=== PATIENT | male | born 1965 | race Caucasian/White ===

== ENCOUNTER → 2017-06-10 | Outpatient (CLI) | payer BC, OTHER ==
[~2017-06-10] MED LIST: ATOR-22 PO; INDO-24 PO; PRLSR20 PO; RANI150T3 PO
[2017-06-10 17:55] LABS: BLOOD UREA NITROGEN 24 mg/dl (7-18); BUN/CREATININE RATIO 14.7 (10-20); CALCIUM 9.6 mg/dl (8.5-10.1); CARBON DIOXIDE 25 mmol/L (21-32); CHLORIDE 111 mmol/L (98-107); GLUCOSE 108 mg/dl (70-99); POTASSIUM 4.1 mmol/L (3.5-5.1); SODIUM 144 mmol/L (136-145)
[2017-06-10 17:58] LABS: CHOLESTEROL 227 mg/dl (0-200); CHOLESTEROL/HDL RATIO 6.1; HDL CHOLESTEROL 37 mg/dl; TRIGLYCERIDES 572 mg/dl (0-150)
== END | disposition home or self-care (01) ==
LOC: C.LABPVFM 14:11
PROVIDERS: ATTEND Nurse Practitioner
DX: E78.5 Hyperlipidemia, unspecified (principal); E87.1 Hypo-osmolality and hyponatremia

== ENCOUNTER → 2017-07-06 | Outpatient (CLI) | payer OTHER ==
[2017-07-06 17:46] LABS: BLOOD UREA NITROGEN 18 mg/dl (7-18); BUN/CREATININE RATIO 16.3 (10-20); CALCIUM 9.2 mg/dl (8.5-10.1); CARBON DIOXIDE 25 mmol/L (21-32); CHLORIDE 107 mmol/L (98-107); GLUCOSE 95 mg/dl (70-99); POTASSIUM 3.8 mmol/L (3.5-5.1); SODIUM 139 mmol/L (136-145)
== END | disposition home or self-care (01) ==
LOC: C.LABPVFM 14:14
PROVIDERS: ATTEND Nurse Practitioner
DX: N28.9 Disorder of kidney and ureter, unspecified (principal)

== ENCOUNTER 2022-05-13 06:58 | Inpatient (IN) ==
--- NOTE | 2022-05-13 07:18 | Emergency Department Note ---
History of Present Illness General Chief complaint: Fever Stated complaint: FEVER,CHILLS,CAN'T CONTROL BLADDER,NOT EATING Time Seen by Provider: 05/13/22 07:06 Source: patient Mode of arrival: ambulatory Limitations: no limitations History of Present Illness Maximum Pain Intensity: 8 This patient is a 56-year-old male who presents to the emergency department for evaluation of fevers and not feeling well over the past 3 days. Patient started feeling sick pretty suddenly 3 days ago. He has had a fever/chills, diarrhea, nausea, vomiting and a cough. Fever does come down when he takes Tylenol, but otherwise has been steady around 103 F. He was seen in urgent care 2 days ago and this was diagnosed as a GI bug. Daughter states that as of yesterday, patient has had incontinence of both bladder and bowel. Patient states that he does not feel like he needs to go. He reports similar symptoms in the past when he had Lyme disease. He is not aware of any recent tick bites. Patient denies any recent sick contacts. He denies any shortness of breath, headaches, or neck pain/stiffness. He denies back pain. Home Medications Medication Instructions Recorded Confirmed Type allopurinol 100 mg tablet 100 mg PO DAILY PRN #90 tab 11/03/21 05/13/22 Rx indomethacin 50 mg capsule 50 mg PO TID PRN #90 cap 11/03/21 05/13/22 Rx atorvastatin 20 mg tablet 20 mg PO HS 05/13/22 05/13/22 History pantoprazole 20 mg tablet,delayed 20 mg PO HS 05/13/22 05/13/22 History release Allergies Allergy/AdvReac Type Severity Reaction Status Date / Time No Known Allergies Allergy Verified 05/13/22 07:57 Past Med/Surg History Medical History Encounter for pre-operative examination GERD (gastroesophageal reflux disease) Gout Surgical History History of umbilical hernia repair History of wisdom tooth extraction Family History Other No family history of adverse response to anesthesia Social History Smoking Status: Never smoker Second Hand Exposure: No; Do You Dip or Chew Tobacco: Yes; Tobacco Cessation Education Requested by Patient: No Hx Alcohol Use: Yes Alcohol type: beer Hx Substance Use: No Preferred Language: Lithuanian Communication Ability: Effective Business Transformation Consultant Required: No Beliefs That Will Affect Care: None Current Living Situation: Spouse Other Information That Helps Us Care for You: No Feels Safe at Home: Yes Safety Concerns: Feels Safe At This Time Assistive Devices: None Review of Systems A total of 10 systems reviewed and were otherwise negative Physical Exam Vital Signs Vital Signs - 24 hr 05/13/22 07:02 05/13/22 07:30 05/13/22 08:30 Temperature 37.4 C 39.3 C H Temperature Source Temporal Artery Scan Oral Pulse Rate 118 H 105 H 90 Pulse Rate from SpO2 Sensor 104 H Respiratory Rate 26 H 43 H Respiratory Effort / Characteristics Non-Labored Respiratory Depth Normal Blood Pressure 120/75 119/61 106/58 L Blood Pressure Mean 90 80 74 Pulse Oximetry 95 94 94 Oxygen Delivery Method Room Air Sepsis Recent Fever Within 48 Hours No Sepsis New/Unexplained Change in Mental Status No Sepsis Action Taken by Nursing No Action Required 05/13/22 09:01 05/13/22 09:05 05/13/22 09:30 Temperature 36.9 C Temperature Source Oral Pulse Rate 89 85 Pulse Rate from SpO2 Sensor Respiratory Rate 16 24 Respiratory Effort / Characteristics Respiratory Depth Blood Pressure 101/60 97/58 L Blood Pressure Mean 73 71 Pulse Oximetry 95 94 Oxygen Delivery Method Sepsis Recent Fever Within 48 Hours Sepsis New/Unexplained Change in Mental Status Sepsis Action Taken by Nursing 05/13/22 10:01 05/13/22 10:07 Temperature Temperature Source Pulse Rate 76 Pulse Rate from SpO2 Sensor 76 Respiratory Rate 33 H Respiratory Effort / Characteristics Respiratory Depth Blood Pressure 87/55 L 86/56 L Blood Pressure Mean 65 66 Pulse Oximetry 93 Oxygen Delivery Method Sepsis Recent Fever Within 48 Hours Sepsis New/Unexplained Change in Mental Status Sepsis Action Taken by Nursing VITALS: Vitals are noted on the nurse's note and reviewed by myself. GENERAL: This is a 56-year-old male, nondiaphoretic but somewhat ill-appearing. SKIN: The skin was without rashes. EARS: External auditory canals clear, tympanic membranes pearly zepeda without erythema or effusion bilaterally. EYES: Pupils equal round and reactive to light and accommodation. NOSE: Patent, turbinates without inflammation or discharge. MOUTH: Mucous membranes moist. Tonsils are not enlarged. Pharynx without erythema or exudate. NECK: Supple without nuchal rigidity. No lymphadenopathy. No meningismus. HEART: Regular rate and rhythm without murmurs gallops or rubs. LUNGS: Clear to auscultation bilaterally without wheezes, rales or rhonchi. No retractions or accessory muscle use. ABDOMEN: Positive bowel sounds x 4. Well-healed surgical scar above the umbilicus. Patient reports no tenderness, but has slight guarding over the left lower quadrant. MSK: No tenderness of the lumbar spine. Full range of motion throughout. NEURO: Patient was alert and oriented to person place and time. Course Administered Medications Acetaminophen (Acetaminophen 325 Mg Tab) 650 mg PO Q4H PRN PRN Reason: Pain or Fever Stop: 06/12/22 13:21 Last Admin: 05/13/22 13:47 Dose: 650 mg Documented by: [id number] Sodium Chloride (Nss 1000ml) 1,000 mls @ 125 mls/hr IV .Q8H KWESI Stop: 06/12/22 13:29 Last Admin: 05/13/22 14:04 Dose: 125 mls/hr Documented by: [id number] Discontinued Medications Sodium Chloride (Nss 1000ml) 2,000 mls @ 999 mls/hr IV .Q2H1M ONE Stop: 05/13/22 09:35 Last Infusion: 05/13/22 10:25 Dose: 0 mls/hr Documented by: [id number] Infusion: 05/13/22 08:55 Dose: 999 mls/hr Documented by: [id number] Infusion: 05/13/22 08:53 Dose: 999 mls/hr Documented by: [id number] Admin: 05/13/22 07:59 Dose: 999 mls/hr Documented by: [id number] Sodium Chloride (Nss 1000ml) 250 mls @ 999 mls/hr IV .Q16M ONE Stop: 05/13/22 07:50 Last Infusion: 05/13/22 09:22 Dose: 999 mls/hr Documented by: [id number] Admin: 05/13/22 07:50 Dose: 999 mls/hr Documented by: [id number] Acetaminophen (Ofirmev) 1,000 mg in 100 mls @ 400 mls/hr IV NOW STA Stop: 05/13/22 07:49 Last Infusion: 05/13/22 08:14 Dose: 0 mls/hr Documented by: [id number] Admin: 05/13/22 07:59 Dose: 400 mls/hr Documented by: [id number] Doxycycline Hyclate 100 mg/ (Dextrose) 110 mls @ 50 mls/hr IV NOW STA Stop: 05/13/22 10:49 Last Infusion: 05/13/22 11:28 Dose: 0 mls/hr Documented by: [id number] Admin: 05/13/22 09:18 Dose: 50 mls/hr Documented by: [id number] Ceftriaxone Sodium (Rocephin) 2,000 mg in 70 mls @ 140 mls/hr IV NOW STA Stop: 05/13/22 09:07 Last Infusion: 05/13/22 09:38 Dose: 140 mls/hr Documented by: [id number] Admin: 05/13/22 09:04 Dose: 140 mls/hr Documented by: [id number] Sodium Chloride (Nss 1000ml) 500 mls @ 999 mls/hr IV .Q31M ONE Stop: 05/13/22 11:08 Last Infusion: 05/13/22 11:28 Dose: 0 mls/hr Documented by: [id number] Admin: 05/13/22 10:54 Dose: 999 mls/hr Documented by: [id number] Sodium Chloride (Nss) 500 mls @ 999 mls/hr IV .Q31M ONE Stop: 05/13/22 12:20 Last Infusion: 05/13/22 12:41 Dose: 0 mls/hr Documented by: [id number] Admin: 05/13/22 12:00 Dose: 999 mls/hr Documented by: [id number] Potassium Chloride (Potassium Chloride Crtab 20 Meq Tabcr) 40 meq PO NOW STA Stop: 05/13/22 13:33 Last Admin: 05/13/22 14:26 Dose: 40 meq Documented by: [id number] Critical Care Time Critical Care Time: Yes Total Critical Care Time: 40 I have personally spent greater than 40 minutes of critical care time in the direct management of this patient. This includes bedside care, interpretation of diagnostic studies, and testing, discussion with consultants, patient, and family members, and other required patient management activities. This 40 minutes is in excess of all separately billable procedures. Medical Decision Making Differential Diagnosis Viral syndrome, otitis, pharyngitis, pneumonia, influenza, meningitis, urinary tract infection, sepsis, bacteremia, as well as other pathologies. Home Medications Current Medication List: was personally reviewed by me Laboratory Data Attestation: I reviewed the patient's lab results. Result diagrams: 05/13/22 07:28 05/13/22 07:28 Lab Results 05/13/22 05/13/22 05/13/22 Range/Units 07:28 07:28 07:28 WBC 3.19 L (4.8-10.8) K/uL RBC 4.15 L (4.7-6.1) M/uL Hgb 13.4 L (14.0-18.0) g/dL Hct 38.1 L (42-52) % MCV 91.8 (80-100) fL MCH 32.3 (25-34) pg MCHC 35.2 (32-36) g/dL RDW Std Deviation 42.9 (36.4-46.3) fL RDW Coeff of Jefry 12.7 (11.5-14.5) % Plt Count 38 L (130-400) K/uL MPV 12.1 H (7.4-10.4) fL Immature Gran % (Auto) 0.3 % Neut % (Auto) 75.9 % Lymph % (Auto) 13.8 % [place] % (Auto) 9.1 % Eos % (Auto) 0.9 % Baso % (Auto) 0.0 % Neut # (Auto) 2.42 (1.4-6.5) K/uL Lymph # (Auto) 0.44 L (1.2-3.4) K/uL [place] # (Auto) 0.29 (0.11-0.59) K/uL Eos # (Auto) 0.03 (0-0.5) K/uL Baso # (Auto) 0.00 (0-0.2) K/uL Immature Gran # (Auto) 0.01 (0.00-0.02) K/uL Platelet Estimate Decreased L (Normal) Peripher Smr Path Cons SMEAR REVIEWED BY_PATH___. Sodium 124 L (136-145) mmol/L Potassium 3.2 L (3.5-5.1) mmol/L Chloride 91 L (98-107) mmol/L Carbon Dioxide 23 (21-32) mmol/L Anion Gap 10 (3-11) BUN 20 (6-23) mg/dl Creatinine 1.46 H (0.6-1.4) mg/dl Est Cr Clr Drug Dosing 52.2 ml/min Est GFR ( Amer) 61.0 ml/min Est GFR (Non-Af Amer) 52.6 ml/min BUN/Creatinine Ratio 13.7 (10-20) Glucose 132 H (70-99(Fasting)) mg/dl Lactate (0.4-2.0) mmol/L Calcium 7.9 L (8.5-10.1) mg/dl Total Bilirubin 1.5 H (0.2-1.0) mg/dl AST 118 H (13-39) U/L ALT 84 H (7-52) U/L Alkaline Phosphatase 134 H (34-104) U/L Total Protein 6.8 (6.0-8.3) gm/dl Albumin 3.6 (3.4-5.0) gm/dl Globulin 3.2 (2.5-4.0) gm/dl Albumin/Globulin Ratio 1.1 (0.9-2) Procalcitonin (0-0.5) ng/ml Urine Color Urine Appearance (Clear) Urine pH (4.5-7.5) Ur Specific [place] (1.000-1.030) Urine Protein (Negative) Urine Glucose (UA) (Negative) Urine Ketones (Negative) Urine Blood (Negative) Urine Nitrite (Negative) Urine Bilirubin (Negative) Urine Urobilinogen (Negative) Ur Leukocyte Esterase (Negative) Urine WBC (Auto) (0-5) /hpf Urine RBC (Auto) (0-4) /hpf U Hyaline Cast (Auto) (0-5) /lpf U Epithel Cells (Auto) (0-5) /lpf Urine Bacteria (Auto) (Negative) Urine Yeast Anaplasma Smear See Comment A A. phagocytophilum DNA Anaplasma Comment Pos for Anaplasma Lyme Disease IgG Ab Negative (Negative) Lyme Disease IgM Ab Negative (Negative) SARS-CoV-2 (PCR) (Negative) Influenza Type A (PCR) (Neg) Influenza Type B (PCR) (Neg) RSV (RT-PCR) (Neg) 05/13/22 05/13/22 05/13/22 Range/Units 07:28 07:28 07:28 WBC (4.8-10.8) K/uL RBC (4.7-6.1) M/uL Hgb (14.0-18.0) g/dL Hct (42-52) % MCV (80-100) fL MCH (25-34) pg MCHC (32-36) g/dL RDW Std Deviation (36.4-46.3) fL RDW Coeff of Jefry (11.5-14.5) % Plt Count (130-400) K/uL MPV (7.4-10.4) fL Immature Gran % (Auto) % Neut % (Auto) % Lymph % (Auto) % [place] % (Auto) % Eos % (Auto) % Baso % (Auto) % Neut # (Auto) (1.4-6.5) K/uL Lymph # (Auto) (1.2-3.4) K/uL [place] # (Auto) (0.11-0.59) K/uL Eos # (Auto) (0-0.5) K/uL Baso # (Auto) (0-0.2) K/uL Immature Gran # (Auto) (0.00-0.02) K/uL Platelet Estimate (Normal) Peripher Smr Path Cons Sodium (136-145) mmol/L Potassium (3.5-5.1) mmol/L Chloride (98-107) mmol/L Carbon Dioxide (21-32) mmol/L Anion Gap (3-11) BUN (6-23) mg/dl Creatinine (0.6-1.4) mg/dl Est Cr Clr Drug Dosing ml/min Est GFR ( Amer) ml/min Est GFR (Non-Af Amer) ml/min BUN/Creatinine Ratio (10-20) Glucose (70-99(Fasting)) mg/dl Lactate 1.7 (0.4-2.0) mmol/L Calcium (8.5-10.1) mg/dl Total Bilirubin (0.2-1.0) mg/dl AST (13-39) U/L ALT (7-52) U/L Alkaline Phosphatase (34-104) U/L Total Protein (6.0-8.3) gm/dl Albumin (3.4-5.0) gm/dl Globulin (2.5-4.0) gm/dl Albumin/Globulin Ratio (0.9-2) Procalcitonin 5.19 H (0-0.5) ng/ml Urine Color Urine Appearance (Clear) Urine pH (4.5-7.5) Ur Specific [place] (1.000-1.030) Urine Protein (Negative) Urine Glucose (UA) (Negative) Urine Ketones (Negative) Urine Blood (Negative) Urine Nitrite (Negative) Urine Bilirubin (Negative) Urine Urobilinogen (Negative) Ur Leukocyte Esterase (Negative) Urine WBC (Auto) (0-5) /hpf Urine RBC (Auto) (0-4) /hpf U Hyaline Cast (Auto) (0-5) /lpf U Epithel Cells (Auto) (0-5) /lpf Urine Bacteria (Auto) (Negative) Urine Yeast Anaplasma Smear A. phagocytophilum DNA Cancelled Anaplasma Comment Lyme Disease IgG Ab (Negative) Lyme Disease IgM Ab (Negative) SARS-CoV-2 (PCR) (Negative) Influenza Type A (PCR) (Neg) Influenza Type B (PCR) (Neg) RSV (RT-PCR) (Neg) 05/13/22 05/13/22 Range/Units 07:56 09:34 WBC (4.8-10.8) K/uL RBC (4.7-6.1) M/uL Hgb (14.0-18.0) g/dL Hct (42-52) % MCV (80-100) fL MCH (25-34) pg MCHC (32-36) g/dL RDW Std Deviation (36.4-46.3) fL RDW Coeff of Jefry (11.5-14.5) % Plt Count (130-400) K/uL MPV (7.4-10.4) fL Immature Gran % (Auto) % Neut % (Auto) % Lymph % (Auto) % [place] % (Auto) % Eos % (Auto) % Baso % (Auto) % Neut # (Auto) (1.4-6.5) K/uL Lymph # (Auto) (1.2-3.4) K/uL [place] # (Auto) (0.11-0.59) K/uL Eos # (Auto) (0-0.5) K/uL Baso # (Auto) (0-0.2) K/uL Immature Gran # (Auto) (0.00-0.02) K/uL Platelet Estimate (Normal) Peripher Smr Path Cons Sodium (136-145) mmol/L Potassium (3.5-5.1) mmol/L Chloride (98-107) mmol/L Carbon Dioxide (21-32) mmol/L Anion Gap (3-11) BUN (6-23) mg/dl Creatinine (0.6-1.4) mg/dl Est Cr Clr Drug Dosing ml/min Est GFR ( Amer) ml/min Est GFR (Non-Af Amer) ml/min BUN/Creatinine Ratio (10-20) Glucose (70-99(Fasting)) mg/dl Lactate (0.4-2.0) mmol/L Calcium (8.5-10.1) mg/dl Total Bilirubin (0.2-1.0) mg/dl AST (13-39) U/L ALT (7-52) U/L Alkaline Phosphatase (34-104) U/L Total Protein (6.0-8.3) gm/dl Albumin (3.4-5.0) gm/dl Globulin (2.5-4.0) gm/dl Albumin/Globulin Ratio (0.9-2) Procalcitonin (0-0.5) ng/ml Urine Color Dark Yellow Urine Appearance Clear (Clear) Urine pH 6.0 (4.5-7.5) Ur Specific [place] 1.015 (1.000-1.030) Urine Protein 1+ H (Negative) Urine Glucose (UA) Negative (Negative) Urine Ketones Negative (Negative) Urine Blood 2+ H (Negative) Urine Nitrite Negative (Negative) Urine Bilirubin Negative (Negative) Urine Urobilinogen Positive H (Negative) Ur Leukocyte Esterase Negative (Negative) Urine WBC (Auto) 1-5 (0-5) /hpf Urine RBC (Auto) 0-4 (0-4) /hpf U Hyaline Cast (Auto) 1-5 (0-5) /lpf U Epithel Cells (Auto) 5-10 H (0-5) /lpf Urine Bacteria (Auto) Negative (Negative) Urine Yeast Not Reportable Anaplasma Smear A. phagocytophilum DNA Anaplasma Comment Lyme Disease IgG Ab (Negative) Lyme Disease IgM Ab (Negative) SARS-CoV-2 (PCR) NEGATIVE (Negative) Influenza Type A (PCR) Negative (Neg) Influenza Type B (PCR) Negative (Neg) RSV (RT-PCR) Negative (Neg) Imaging Data Attestation: I personally reviewed and interpreted this imaging study as follows: Radiologist's Impression: Chest X-Ray 05/13/22 07:32 XR chest 1V portable CLINICAL HISTORY: Fever COMPARISON STUDY: Chest radiograph September 01, 2012. FINDINGS: Lung volumes are mildly diminished. There is no pneumothorax or pleural effusion. Cardiac size is at the upper limits of normal. Apparent left lower lung retrocardiac opacity likely reflects pulmonary vessels or atelectasis. No definite consolidation to suggest pneumonia. IMPRESSION: 1. No acute cardiopulmonary findings. 2. Left lower lung retrocardiac opacity which likely reflects pulmonary vessels or atelectasis. An infectious process is considered less likely. ACT 112: Negative or not required by law. Electronically signed by: Ghassan King M.D. 05/13/2022 7:59 AM Abdomen/Pelvis CT 05/13/22 08:29 CT OF THE ABDOMEN AND PELVIS WITHOUT CONTRAST CLINICAL HISTORY: abdominal pain, vomiting, fever COMPARISON STUDY: CT of the abdomen and pelvis January 08, 2012. TECHNIQUE: Axial images of the abdomen and pelvis were obtained without IV contrast. Images were reviewed in the axial, sagittal, and coronal planes. Automated exposure control was utilized for the study. A dose lowering technique was utilized adhering to the principles of ALARA. FINDINGS: Groundglass opacities within the lower lungs reflect atelectasis. No pneumatosis, free air or portal venous gas is present. No renal, ureteral or bladder calculi are present. There is no hydronephrosis. Evaluation of the remainder of the abdomen and pelvis is suboptimal on this unenhanced exam. There is mild splenomegaly. Hepatic steatosis is noted. No biliary or pancreatic ductal dilatation is present. There is no peripancreatic or pericholecystic stranding. Sigmoid diverticulosis is noted without evidence for acute diverticulitis. There is no evidence for a bowel obstruction. The appendix is mildly dilated, measuring 9 mm in caliber. However, this is similar in appearance to prior CT of January 08, 2012 and there is no periappendiceal stranding. Mild bladder wall thickening is noted. No acute fracture or suspicious lesion is identified within the visualized skeletal structures. There is no abdominal or pelvic lymphadenopathy. Left inguinal hernia repair with mesh is noted. IMPRESSION: 1. No urinary calculi or hydronephrosis. Bladder wall thickening which could be correlated with urinalysis. 2. No bowel obstruction. Sigmoid diverticulosis without evidence for acute diverticulitis. 3. No change in mild appendiceal dilatation since prior CT. No evidence for acute appendicitis. 4. Hepatic steatosis. ACT 112: Negative or not required by law. Electronically signed by: Ghassan King M.D. 05/13/2022 9:09 AM ECG Data Attestation: I personally reviewed and interpreted this ECG as follows: Indication: + tachycardia Rate (beats per minute): 104 Rhythm: + sinus tachycardia ECG Intervals/blocks: + Incomplete right bundle branch block ECG ST segments: + Normal ST segments Change: no significant change MDM Narrative The patient is a 56-year-old male who presents today complaining of fevers, chills, diarrhea and vomiting. Labs revealed leukopenia, thrombocytopenia and transaminitis. Patient is hyponatremic with a sodium of 124. He is slightly hypokalemic with potassium of 3.2. Lactate is not elevated. Creatinine is mildly elevated at 1.46. Labs are suggestive of a tickborne illness, likely anaplasmosis and peripheral smear also supports this. Patient was started on Rocephin and doxycycline. He was given initial fluid bolus of 30 mL/kg based on ideal body weight. Patient's blood pressures were then slightly low and he was given an additional 1 L of fluids with improvement of his blood pressures. Patient was reevaluated and he was mentating well and feeling somewhat better. The case was discussed with the [facility] service, who agreed to evaluate the patient for further care. Impression & Plan Anaplasmosis, Hyponatremia, Acute kidney injury, Transaminitis, Thrombocyto penia Discharge Plan Visit Data Chief Complaint: Fever Stated Complaint: FEVER,CHILLS,CAN'T CONTROL BLADDER,NOT EATING ED Provider: Fahad Boykin ED Midlevel Provider: Bertha Toribio Discharge Problem: Anaplasmosis, Hyponatremia, Acute kidney injury, Transaminitis, Thrombocytopenia Patient Disposition: Admitted As Inpatient Discharge Instructions Interventions: ED Discharge Assessment Last Done: 05/13/22 12:35
[2022-05-13] MEDS ORDERED: ACETAMINOPHEN 1,000 MG/100 ML VIAL IV STA (07:35)
[2022-05-13] MEDS ORDERED: SODIUM CHLORIDE 0.9% 1000ML 2,000 ML IV ONE (07:35)
[2022-05-13] MEDS ORDERED: SODIUM CHLORIDE 0.9% 1000ML 250 ML IV ONE (07:35)
--- NOTE | 2022-05-13 08:00 | XRay Report ---
XR chest 1V portable CLINICAL HISTORY: Fever COMPARISON STUDY: Chest radiograph September 01, 2012. FINDINGS: Lung volumes are mildly diminished. There is no pneumothorax or pleural effusion. Cardiac s ize is at the upper limits of normal. Apparent left lower lung retrocardiac opacity likely reflects p ulmonary vessels or atelectasis. No definite consolidation to suggest pneumonia. IMPRESSION: 1. No acute cardiopulmonary findings. 2. Left lower lung retrocardiac opacity which likely reflects pulmonary vessels or atelectasis. An in fectious process is considered less likely. ACT 112: Negative or not required by law. Electronically signed by: Ghassan King M.D. 05/13/2022 7:59 AM
[2022-05-13 08:23] LABS: Albumin Globulin Ratio 1.1 (0.9-2); Albumin Level 3.6 gm/dl (3.4-5.0); BUN Creatinine Ratio 13.7 (10-20); Bilirubin,Total 1.5 mg/dl (0.2-1.0); Calcium 7.9 mg/dl (8.5-10.1); Creatinine Clr Calc Pharmacy 52.2 ml/min; Est GFR (Non-African American) 52.6 ml/min; Globulin 3.2 gm/dl (2.5-4.0); Potassium 3.2 mmol/L (3.5-5.1); Total Protein 6.8 gm/dl (6.0-8.3)
[2022-05-13] MEDS ORDERED: DOXYCYCLINE HYCLATE 100 MG in DEXTROSE 5% 100 ML IV STA (08:38)
[2022-05-13] MEDS ORDERED: cefTRIAXone SODIUM 2,000 MG/70 ML BAG IV STA (08:38)
[2022-05-13 08:53] LABS: Lyme Ab IgG w/WB Rflx Negative (Negative); Lyme Ab IgM w/WB Rflx Negative (Negative)
[2022-05-13 08:55] LABS: Hematocrit (blood only) 38.1 % (42-52); Hemoglobin 13.4 g/dL (14.0-18.0); Mean Corpuscular Hemoglobin 32.3 pg (25-34); Mean Corpuscular Hgb Conc 35.2 g/dL (32-36); Mean Corpuscular Volume 91.8 fL (80-100); Mean Platelet Volume 12.1 fL (7.4-10.4); Platelet Count 38 K/uL (130-400); RDW Coefficient of Variation 12.7 % (11.5-14.5); RDW Standard Deviation 42.9 fL (36.4-46.3); Red Blood Count 4.15 M/uL (4.7-6.1); White Blood Count 3.19 K/uL (4.8-10.8)
[2022-05-13 08:56] LABS: Influenza A virus by PCR Negative (Neg); Influenza B virus by PCR Negative (Neg); RSV by PCR Negative (Neg); SARS CoV2 RNA(COVID-19) InHosp NEGATIVE (Negative)
--- NOTE | 2022-05-13 09:11 | CT Scan Report ---
CT OF THE ABDOMEN AND PELVIS WITHOUT CONTRAST CLINICAL HISTORY: abdominal pain, vomiting, fever COMPARISON STUDY: CT of the abdomen and pelvis January 08, 2012. TECHNIQUE: Axial images of the abdomen and pelvis were obtained without IV contrast. Images were revi ewed in the axial, sagittal, and coronal planes. Automated exposure control was utilized for the mon[place] dy. A dose lowering technique was utilized adhering to the principles of ALARA. FINDINGS: Groundglass opacities within the lower lungs reflect atelectasis. No pneumatosis, free air or portal venous gas is present. No renal, ureteral or bladder calculi are present. There is no hydro nephrosis. Evaluation of the remainder of the abdomen and pelvis is suboptimal on this unenhanced exa m. There is mild splenomegaly. Hepatic steatosis is noted. No biliary or pancreatic ductal dilatation is present. There is no peripancreatic or pericholecystic stranding. Sigmoid diverticulosis is noted without evidence for acute diverticulitis. There is no evidence for a bowel obstruction. The appendi x is mildly dilated, measuring 9 mm in caliber. However, this is similar in appearance to prior CT of January 08, 2012 and there is no periappendiceal stranding. Mild bladder wall thickening is noted. No acute fracture or suspicious lesion is identified within the visualized skeletal structures. There is no abdominal or pelvic lymphadenopathy. Left inguinal hernia repair with mesh is noted. IMPRESSION: 1. No urinary calculi or hydronephrosis. Bladder wall thickening which could be correlated with urina lysis. 2. No bowel obstruction. Sigmoid diverticulosis without evidence for acute diverticulitis. 3. No change in mild appendiceal dilatation since prior CT. No evidence for acute appendicitis. 4. Hepatic steatosis. ACT 112: Negative or not required by law. Electronically signed by: Ghassan King M.D. 05/13/2022 9:09 AM
[2022-05-13 10:08] LABS: Eosinophils # (auto) 0.03 K/uL (0-0.5); Eosinophils % (auto) 0.9 %; Immature Granulocytes # (auto) 0.01 K/uL (0.00-0.02); Immature Granulocytes % (auto) 0.3 %; Lymphocytes # (auto) 0.44 K/uL (1.2-3.4); Lymphocytes % (auto) 13.8 %; Monocytes # (auto) 0.29 K/uL (0.11-0.59); Monocytes % (auto) 9.1 %; Neutrophils # (auto) 2.42 K/uL (1.4-6.5); Neutrophils % (auto) 75.9 %; Platelet Estimate Decreased (Normal)
[2022-05-13 10:28] LABS: Anaplasmosis Smear(Rpt to DOH) Pos for Anaplasma
--- NOTE | 2022-05-13 10:36 | History & Physical Report ---
Date of Service May 13, 2022 Assessment & Plan (1) Sepsis: Plan: - Severe sepsis manifested by fever, tachycardia, leukopenia with hypotension - Suspected source is tick-borne illness with a positive anaplasma smear - He will be made a full admission to PCU (as long as he can maintain appropriate hemodynamics) - Aggressive IVF hydration, currently receiving 3L of NSS, maintenance fluids ordered at 125 ml/hr, place in trendelenburg - Blood cultures ordered x 2 sets - APAP 650mg will be utilized q4h prn headache/fever - Doxycycline 100mg IV BID - given one dose of Doxy in ER - If pt unable to maintain hemodynamics, will need admitted to ICU, plan to reassess after this most recent fluid bolus is complete (2) 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 Re-evaluate need for ICU admission following fluid bolus administration. No pharmacologic DVT ppx due to marked thrombocytopenia. Plan has been d/w Dr. Locke who will also see and evaluate this patient. Further orders as warranted. Family has been informed of plan and is in agreement. History of Present Illness Chief Complaint: fever Primary Care Provider: Yinka Gongora DO Mr. Monsivais is a 56 yo WM with a pmhx of GERD, gout, tobacco use (chew), dyslipidemia, and daily EtOH use who presented to the ER today accompanied by his family due to c/o high fever x 3 days. Family reports that while they were camping over the weekend, pt started complaining of feeling lightheaded and having a headache on Wednesday. On Wednesday, pt developed a fever of 102F up to 104F that responded to Advil. Unfortunately, as the Advil wore off, his fever went back up. He was also experiencing chills, fatigue, poor appetite, confusion, and a few episodes of vomiting. Yesterday, pt has experienced incont inence of both bowel and bladder and another episode of urinary incontinence today. He has not passed out or experienced any witnessed seizure activity. Pt has a h/o Lyme disease a couple of years ago that was treated. He admits to having the "bull's eye" rash at the time of his diagnosis. He reported recently seeing "something small and black" on his abdomen but wasn't sure if it was a tick. He has not noticed any bull's eye rash. He was brought to the ER today where his work up demonstrated pancytopenia with a wbc count of 3.19, hgb 13.4, hct 38.1, and platelet count of 38. His Na is 124, potassium 3.2, and creat elevated at 1.46. LFTs are also elevated. His anaplasma smear is positive. He was medicated in the ER with a dose of APAP 1g IV, and Doxycycline 100mg IV. He was also given 2L of NSS. Hospitalists were consulted for admission for further treatment. Allergies Allergy/AdvReac Type Severity Reaction Status Date / Time No Known Allergies Allergy Verified 05/13/22 07:57 Home Medications Medication Instructions Recorded Confirmed Type allopurinol 100 mg tablet 100 mg PO DAILY PRN #90 tab 11/03/21 05/13/22 Rx indomethacin 50 mg capsule 50 mg PO TID PRN #90 cap 11/03/21 05/13/22 Rx atorvastatin 20 mg tablet 20 mg PO HS 05/13/22 05/13/22 History doxycycline hyclate 100 mg capsule 100 mg PO BID 11 Days #22 cap 05/16/22 Rx pantoprazole 40 mg tablet,delayed 40 mg PO QAM 30 Days #30 tab 05/16/22 Rx release Past Med/Surg History Medical History Encounter for pre-operative examination GERD (gastroesophageal reflux disease) Gout Surgical History History of umbilical hernia repair History of wisdom tooth extraction Family History Other No family history of adverse response to anesthesia Social History Smoking Status: Never smoker Second Hand Exposure: No; Hx Alcohol Use: Yes Alcohol type: beer Hx Substance Use: No Preferred Language: Frisian Communication Ability: Effective Trash Man Required: No Beliefs That Will Affect Care: None Current Living Situation: Spouse Feels Safe at Home: Yes Assistive Devices: None Review of Systems Review of Systems: All systems reviewed and are unremarkable except as noted in HPI and below. Pos fever, chills, fatigue, headache, vomiting, urinary incontinence Denies nasal congestion, sore throat, cough, chest pain, shortness of breath, palpitations, orthopnea, PND, abdominal pain, constipation, dysuria, hematuria, frequency, back pain, joint swelling, easy bruising or bleeding, skin lesions or rashes. Physical Exam Physical Exam: GENERAL: 56 yo WD/WN middle aged WM. Appears sick but not in any acute distress at the moment. EYES: EOMI. PERRLA. Anicteric. HENT: Moist mucous membranes. No scleral icterus. No cervical lymphadenopathy. LUNGS: Clear to auscultation bilaterally. No accessory muscle use. Fine crackles in bases. CARDIOVASCULAR: Regular rate and rhythm. No M/G/R. No JVD. ABDOMEN: Soft, non-tender and non-distended. No palpable masses. BS normoactive x 4 quad. EXTREMITIES: No edema. Non-tender. Peripheral pulses +2/4. NEUROLOGIC: A&O x3. No focal neurological deficits. CN II-XII grossly intact. PSYCHIATRIC: Cooperative. Appropriate mood and affect. SKIN: Warm, dry, intact. No rashes or lesions. Results & Data Results & Data ([facility]) Vital Signs (Past 12 Hours) Vital Signs Temp Pulse Resp BP Pulse Ox 05/13/22 10:07 76 33 H 86/56 L 93 05/13/22 10:01 87/55 L 05/13/22 09:30 85 24 97/58 L 94 05/13/22 09:05 36.9 C 05/13/22 09:01 89 16 101/60 95 05/13/22 08:30 90 106/58 L 94 05/13/22 07:30 39.3 C H 105 H 43 H 119/61 94 05/13/22 07:02 37.4 C 118 H 26 H 120/75 95 Laboratory Results 05/13/22 07:28 05/13/22 07:28 Diagnostic Findings Chest X-Ray 05/13/22 07:32 XR chest 1V portable CLINICAL HISTORY: Fever COMPARISON STUDY: Chest radiograph September 01, 2012. FINDINGS: Lung volumes are mildly diminished. There is no pneumothorax or pleural effusion. Cardiac size is at the upper limits of normal. Apparent left lower lung retrocardiac opacity likely reflects pulmonary vessels or atelectasis. No definite consolidation to suggest pneumonia. IMPRESSION: 1. No acute cardiopulmonary findings. 2. Left lower lung retrocardiac opacity which likely reflects pulmonary vessels or atelectasis. An infectious process is considered less likely. ACT 112: Negative or not required by law. Electronically signed by: Ghassan King M.D. 05/13/2022 7:59 AM Abdomen/Pelvis CT 05/13/22 08:29 CT OF THE ABDOMEN AND PELVIS WITHOUT CONTRAST CLINICAL HISTORY: abdominal pain, vomiting, fever COMPARISON STUDY: CT of the abdomen and pelvis January 08, 2012. TECHNIQUE: Axial images of the abdomen and pelvis were obtained without IV cont rast. Images were reviewed in the axial, sagittal, and coronal planes. Automated exposure control was utilized for the study. A dose lowering technique was utilized adhering to the principles of ALARA. FINDINGS: Groundglass opacities within the lower lungs reflect atelectasis. No pneumatosis, free air or portal venous gas is present. No renal, ureteral or bladder calculi are present. There is no hydronephrosis. Evaluation of the remainder of the abdomen and pelvis is suboptimal on this unenhanced exam. There is mild splenomegaly. Hepatic steatosis is noted. No biliary or pancreatic janis ruma dilatation is present. There is no peripancreatic or pericholecystic stranding. Sigmoid diverticulosis is noted without evidence for acute diverticulitis. There is no evidence for a bowel obstruction. The appendix is mildly dilated, measuring 9 mm in caliber. However, this is similar in appearan ce to prior CT of January 08, 2012 and there is no periappendiceal stranding. Mild bladder wall thickening is noted. No acute fracture or suspicious lesion is identified within the visualized skeletal structures. There is no abdominal or pelvic lymphadenopathy. Left inguinal hernia repair with mesh is noted. IMPRESSION: 1. No urinary calculi or hydronephrosis. Bladder wall thickening which could be correlated with urinalysis. 2. No bowel obstruction. Sigmoid diverticulosis without evidence for acute diverticulitis. 3. No change in mild appendiceal dilatation since prior CT. No evidence for acute appendicitis. 4. Hepatic steatosis. ACT 112: Negative or not required by law. Electronically signed by: Ghassan King M.D. 05/13/2022 9:09 AM Code Status & VTE Plan Code Status Full code Supervising Physician Co-Signing Physician Notes During face to face encounter, physical exam was performed and history of pres ent illness was obtained. Discussed plan of care with VITO Lopez and patient All of patient's questions were answered. Reviewed above note and agree with it. Patient admitted with sepsis, placed on antibiotics. hold transfer to ICU unless hypotensive. PG Care Time/CCT Total # of Minutes Spent Total Time Spent with Patient: Total time spent is greater than 50% in coordination of care (as documented) at patient's floor/unit and/or counseling patient: Coding Level of Care Code 68140 Initial Inpt Care Lvl 3 Diagnoses Sepsis A41.9 Pancytopenia D61.818 Hyponatremia E87.1 Hypokalemia E87.6 Acute kidney injury N17.9 GERD (gastroesophageal reflux disease) K21.9 Transaminitis R74.01
[2022-05-13] MEDS ORDERED: SODIUM CHLORIDE 0.9% 1000ML 500 ML IV ONE (10:38)
[2022-05-13 10:43] LABS: Appearance Urine Clear (Clear); Bacteria Urine Automated Negative (Negative); Bilirubin Urine Negative (Negative); Blood Urine 2+ (Negative); Color Urine Dark Yellow; Glucose Urine UA Negative (Negative); Ketones Urine Negative (Negative); Leukocyte Esterase Urine Negative (Negative); Nitrite Urine Negative (Negative); Protein Urine 1+ (Negative); RBC Urine Automated 0-4 /hpf (0-4); Specific Gravity Urine 1.015 (1.000-1.030); Urobilinogen Urine Positive (Negative)
[2022-05-13] MEDS ORDERED: SODIUM CHLORIDE 0.9% 500 ML IV ONE (11:50)
[2022-05-13] MEDS ORDERED: ALUMINUM/MAGNESIUM SUSP 30 ML UDC PO PRN (13:22)
[2022-05-13] MEDS ORDERED: MAGNESIUM HYDROXIDE SUSP 30 ML UDC PO PRN (13:22)
[2022-05-13] MEDS ORDERED: ONDANSETRON INJ 2 MG/ML 2 ML VIAL IV PRN (13:22)
[2022-05-13] MEDS ORDERED: POTASSIUM CHLORIDE CRTAB 20 MEQ TABCR PO STA (13:32)
[2022-05-13] MEDS: ACETAMINOPHEN 325 MG TAB PO PRN (13:47)
[2022-05-13] MEDS: SODIUM CHLORIDE 0.9% 1000ML 1,000 ML IV SCH ×2 (14:04→19:39)
[2022-05-13] MEDS: DOXYCYCLINE HYCLATE 100 MG in DEXTROSE 5% 100 ML IV SCH (19:39)
[2022-05-14] MEDS: SODIUM CHLORIDE 0.9% 1000ML 1,000 ML IV SCH (04:52)
[2022-05-14 07:10] LABS: Hematocrit (blood only) 33.9 % (42-52); Hemoglobin 11.5 g/dL (14.0-18.0); Mean Corpuscular Hgb Conc 33.9 g/dL (32-36); Mean Corpuscular Volume 94.4 fL (80-100); Mean Platelet Volume 13.2 fL (7.4-10.4); Platelet Count 32 K/uL (130-400); RDW Coefficient of Variation 13.5 % (11.5-14.5); RDW Standard Deviation 46.7 fL (36.4-46.3); Red Blood Count 3.59 M/uL (4.7-6.1)
[2022-05-14 07:11] LABS: Basophils # (auto) 0.04 K/uL (0-0.2); Basophils % (auto) 1.4 %; Eosinophils # (auto) 0.01 K/uL (0-0.5); Eosinophils % (auto) 0.3 %; Lymphocytes # (auto) 1.26 K/uL (1.2-3.4); Lymphocytes % (auto) 43.4 %; Monocytes # (auto) 0.32 K/uL (0.11-0.59); Neutrophils # (auto) 1.27 K/uL (1.4-6.5); Neutrophils % (auto) 43.9 %; Platelet Estimate Decreased (Normal)
[2022-05-14 07:35] LABS: Albumin Globulin Ratio 1.1 (0.9-2); Albumin Level 2.7 gm/dl (3.4-5.0); BUN Creatinine Ratio 13.7 (10-20); Bilirubin,Total 0.7 mg/dl (0.2-1.0); Calcium 7.3 mg/dl (8.5-10.1); Est GFR (African American) 102.6 ml/min; Est GFR (Non-African American) 88.5 ml/min; Globulin 2.5 gm/dl (2.5-4.0); Potassium 3.7 mmol/L (3.5-5.1); Total Protein 5.2 gm/dl (6.0-8.3)
[2022-05-14] MEDS: DOXYCYCLINE HYCLATE 100 MG in DEXTROSE 5% 100 ML IV SCH ×2 (08:36→19:55)
--- NOTE | 2022-05-14 14:49 | Hospitalist Progress Note ---
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 Interventions as outlined above. Follow up labs in AM. Cap fluids. Monitor on PCU today and would downgrade to med/surg 05/15. Will provide update to via phone. Plan d/w Dr. Small. Admission and Anticipated Discharge Date Admission Date: May 13, 2022 Subjective Patient seen on daily rounds this morning. He is resting comfortably in bed, rep orts no new complaints. He notes that his appetite is better today. Headache is also improved. Still feels fatigued. No n/v or urinary incontinence today. Denies chest pain or dyspnea. Review of Systems Review of Systems: All systems reviewed and are unremarkable except as noted in HPI and below. Pos fatigue, headache Denies fever/chills, nasal congestion, sore throat, cough, chest pain, shortness of breath, palpitations, orthopnea, PND, abdominal pain, n/v/d, constipation, dysuria, hematuria, frequency, back pain, joint swelling, easy bruising or bleeding, skin lesions or rashes. Physical Exam Physical Exam: GENERAL: 56 yo WD/WN middle aged WM. NAD. LUNGS: Clear to auscultation bilaterally. No accessory muscle use. Fine crackles in bases. CARDIOVASCULAR: Regular rate and rhythm. ABDOMEN: Soft, non-tender and non-distended. BS normoactive x 4 quad. EXTREMITIES: No edema. Non-tender. Peripheral pulses +2/4. NEUROLOGIC: A&O x3. Nonfocal PSYCHIATRIC: Cooperative. Appropriate mood and affect. SKIN: Warm, dry, intact. No rashes or lesions. Results & Data Results & Data ([facility]) Vital Signs (Past 12 Hours) Vital Signs Temp Pulse Pulse Resp BP Pulse Ox 05/14/22 11:32 36.8 C 75 18 112/66 96 05/14/22 09:47 79 05/14/22 07:50 36.9 C 77 18 108/69 94 05/14/22 03:44 37.1 C 71 17 101/60 93 Laboratory Results 05/14/22 06:11 05/14/22 06:11 ECG Additional Comments: sinus 70s on tele monitor PG Care Time/CCT Total # of Minutes Spent Total Time Spent with Patient: Total time spent is greater than 50% in coordination of care (as documented) at patient's floor/unit and/or counseling patient: Coding Level of Care Code 49385 Subseq Hosp Care Lvl 3 Diagnoses Sepsis A41.9 Pancytopenia D61.818 Hyponatremia E87.1 Hypokalemia E87.6 Acute kidney injury N17.9 Transaminitis R74.01 GERD (gastroesophageal reflux disease) K21.9 Anaplasmosis A77.49
[2022-05-14] MEDS: ACETAMINOPHEN 325 MG TAB PO PRN (19:55)
--- NOTE | 2022-05-14 22:31 | Electrocardiogram Report ---
Test Reason : Blood Pressure : / mmHG Vent. Rate : 104 BPM Atrial Rate : 104 BPM P-R Int : 144 ms QRS Dur : 092 ms QT Int : 310 ms P-R-T Axes : 056 -17 051 degrees QTc Int : 407 ms Sinus tachycardia Incomplete right bundle branch block Borderline ECG When compared with ECG of 02-JAN-2020 19:16, No significant change was found Confirmed by Fernando Marcos ([id number]) on 05/14/2022 10:30:59 PM Referred By: REFERRED SELF Confirmed By:Fernando Marcos
--- NOTE | 2022-05-14 22:52 | Electrocardiogram Report ---
Test Reason : Blood Pressure : / mmHG Vent. Rate : 085 BPM Atrial Rate : 085 BPM P-R Int : 144 ms QRS Dur : 092 ms QT Int : 368 ms P-R-T Axes : 066 -04 040 degrees QTc Int : 437 ms Normal sinus rhythm Incomplete right bundle branch block Borderline ECG When compared with ECG of 13-MAY-2022 07:13, No significant change was found Confirmed by Fernando Marcos ([id number] on 05/14/2022 10:52:22 PM Referred By: REFERRED SELF Confirmed By:Fernando Marcos
[2022-05-15 06:57] LABS: Albumin Globulin Ratio 1.1 (0.9-2); Albumin Level 2.9 gm/dl (3.4-5.0); BUN Creatinine Ratio 11.9 (10-20); Bilirubin,Total 0.8 mg/dl (0.2-1.0); Creatinine Clr Calc Pharmacy 93.9 ml/min; Est GFR (African American) 112.7 ml/min; Est GFR (Non-African American) 97.2 ml/min; Globulin 2.6 gm/dl (2.5-4.0); Potassium 3.4 mmol/L (3.5-5.1); Total Protein 5.5 gm/dl (6.0-8.3)
[2022-05-15 06:58] LABS: Hematocrit (blood only) 36.8 % (42-52); Hemoglobin 12.5 g/dL (14.0-18.0); Mean Corpuscular Hemoglobin 31.6 pg (25-34); Mean Corpuscular Volume 93.2 fL (80-100); Mean Platelet Volume 12.6 fL (7.4-10.4); Platelet Count 41 K/uL (130-400); RDW Coefficient of Variation 13.3 % (11.5-14.5); RDW Standard Deviation 45.8 fL (36.4-46.3); Red Blood Count 3.95 M/uL (4.7-6.1); White Blood Count 3.65 K/uL (4.8-10.8)
[2022-05-15 06:59] LABS: ALC (manual) 1.52 K/uL (1.2-3.4); ANC (manual) 1.97 K/uL (1.4-6.5); Lymphocytes # (manual) 0.79 K/uL (1.2-3.4); Lymphocytes % (manual) 21.7 %; Monocytes # (manual) 0.16 K/uL (0.11-0.59); Monocytes % (manual) 4.3 %; Neutrophils # (manual) 1.97 K/uL (1.4-6.5); RBC Morphology Unremarkable; Reactive Lymphocytes # (manual) 0.73 K/uL
[2022-05-15] MEDS: DOXYCYCLINE HYCLATE 100 MG in DEXTROSE 5% 100 ML IV SCH (08:29)
[2022-05-15] MEDS: PANTOprazole 40 MG TAB PO SCH (10:33)
[2022-05-15] MEDS: POTASSIUM CHLORIDE CRTAB 20 MEQ TABCR PO SCH ×2 (10:34→20:56)
--- NOTE | 2022-05-15 13:20 | Hospitalist Progress Note ---
Date of Service May 15, 2022 Assessment & Plan (1) Sepsis: Plan: - Severe sepsis manifested by fever, tachycardia, leukopenia with hypotension - Source is tick-borne illness with a positive anaplasma smear -Stable for downgrade to MedSurg - Aggressive IVF administered, received 1L bolus of NSS x3, maintenance fluids continued at 125 ml/hr following admission, discontinued with improving p.o. - APAP 650mg q4h prn headache/fever - Doxycycline 100mg IV BID converting to p.o. 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 Remains intermittently hypotensive but overall gradually improving. Potassium repleted today Admission and Anticipated Discharge Date Admission Date: May 13, 2022 Subjective Improving, remains fatigued. Denies fever, chills, sweats, chest pain, chest pressure overnight. Still feels somewhat weak, about 50% of his baseline. Review of Systems Review of Systems: All systems reviewed & are unremarkable except as noted in Subjective Physical Exam Physical Exam: General: A&Ox3. NAD. Cooperative. HEENT: Atraumatic, normocephalic. Pulm: CTAB A&P. -wheezes, -rales, -rhonchi. Symmetrical chest rise. No increase in work of breathing. No respiratory distress. Cardiac: RRR, -mrg. Radial pulses intact and symmetrical. Abdominal: Nontender, nondistended, soft. BS present. Extremities: Sensation intact to soft touch in hands and feet bilaterally. Warm and dry. Results & Data Results & Data ([facility]) Vital Signs (Past 12 Hours) Vital Signs Temp Pulse Pulse Resp BP Pulse Ox 05/15/22 12:00 36.7 C 67 20 113/71 95 05/15/22 10:55 62 05/15/22 08:00 36.8 C 67 18 144/61 H 97 05/15/22 03:32 36.5 C 61 16 109/64 93 PG Care Time/CCT Total # of Minutes Spent Total Time Spent with Patient: Total time spent is greater than 50% in coordination of care (as documented) at patient's floor/unit and/or counseling patient: Coding Level of Care Code 64502 Subseq Hosp Care Lvl 2 Diagnoses Sepsis A41.9 Anaplasmosis A77.49 Pancytopenia D61.818 Hyponatremia E87.1 Hypokalemia E87.6 Acute kidney injury N17.9 Transaminitis R74.01 GERD (gastroesophageal reflux disease) K21.9
[2022-05-15] MEDS: DOXYCYCLINE HYCLATE 100 MG CAP PO SCH (20:56)
[2022-05-16 07:44] LABS: BUN Creatinine Ratio 12.5 (10-20); Calcium 7.9 mg/dl (8.5-10.1); Creatinine Clr Calc Pharmacy 98.6 ml/min; Est GFR (African American) 114.9 ml/min; Est GFR (Non-African American) 99.2 ml/min; Potassium 3.6 mmol/L (3.5-5.1)
[2022-05-16 08:13] LABS: Hematocrit (blood only) 37.7 % (42-52); Hemoglobin 12.8 g/dL (14.0-18.0); Mean Corpuscular Hemoglobin 32.2 pg (25-34); Mean Corpuscular Volume 94.7 fL (80-100); Mean Platelet Volume 13.1 fL (7.4-10.4); Platelet Count 74 K/uL (130-400); RDW Coefficient of Variation 13.4 % (11.5-14.5); Red Blood Count 3.98 M/uL (4.7-6.1); White Blood Count 4.91 K/uL (4.8-10.8)
[2022-05-16 08:14] LABS: Basophils # (auto) 0.09 K/uL (0-0.2); Basophils % (auto) 1.8 %; Eosinophils # (auto) 0.06 K/uL (0-0.5); Eosinophils % (auto) 1.2 %; Immature Granulocytes # (auto) 0.01 K/uL (0.00-0.02); Immature Granulocytes % (auto) 0.2 %; Lymphocytes # (auto) 2.97 K/uL (1.2-3.4); Lymphocytes % (auto) 60.5 %; Monocytes # (auto) 0.37 K/uL (0.11-0.59); Monocytes % (auto) 7.5 %; Neutrophils # (auto) 1.41 K/uL (1.4-6.5); Neutrophils % (auto) 28.8 %; Platelet Estimate Decreased (Normal)
[2022-05-16] MEDS: DOXYCYCLINE HYCLATE 100 MG CAP PO SCH (08:26)
[2022-05-16] MEDS: PANTOprazole 40 MG TAB PO SCH (08:26)
--- NOTE | 2022-05-16 11:15 | Discharge Summary ---
Date of Service May 16, 2022 Admission HPI Per Admitting Provider Mr. Monsivais is a 56 yo WM with a pmhx of GERD, gout, tobacco use (chew), dyslipidemia, and daily EtOH use who presented to the ER today accompanied by his family due to c/o high fever x 3 days. Family reports that while they were camping over the weekend, pt started complaining of feeling lightheaded and having a headache on Wednesday. On Wednesday, pt developed a fever of 102F up to 104F that responded to Advil. Unfortunately, as the Advil wore off, his fever went back up. He was also experiencing chills, fatigue, poor appetite, confusion, and a few episodes of vomiting. Yesterday, pt has experienced incontinence of both bowel and bladder and another episode of urinary incontinence today. He has not passed out or experienced any witnessed seizure activity. Pt has a h/o Lyme disease a couple of years ago that was treated. He admits to having the "bull's eye" rash at the time of his diagnosis. He reported recently seeing "something small and black" on his abdomen but wasn't sure if it was a tick. He has not noticed any bull's eye rash. He was brought to the ER today where his work up demonstrated pancytopenia with a wbc count of 3.19, hgb 13.4, hct 38.1, and platelet count of 38. His Na is 124, potassium 3.2, and creat elevated at 1.46. LFTs are also elevated. His anaplasma smear is positive. He was medicated in the ER with a dose of APAP 1g IV, and Doxycycline 100mg IV. He was also given 2L of NSS. Hospitalists were consulted for admission for further treatment. Admission Exam Per Admitting Provider GENERAL: 56 yo WD/WN middle aged WM. Appears sick but not in any acute distress at the moment. EYES: EOMI. PERRLA. Anicteric. HENT: Moist mucous membranes. No scleral icterus. No cervical lymphadenopathy. LUNGS: Clear to auscultation bilaterally. No accessory muscle use. Fine crackles in bases. CARDIOVASCULAR: Regular rate and rhythm. No M/G/R. No JVD. ABDOMEN: Soft, non-tender and non-distended. No palpable masses. BS normoactive x 4 quad. EXTREMITIES: No edema. Non-tender. Peripheral pulses +2/4. NEUROLOGIC: A&O x3. No focal neurological deficits. CN II-XII grossly intact. PSYCHIATRIC: Cooperative. Appropriate mood and affect. SKIN: Warm, dry, intact. No rashes or lesions. Principal Diagnosis Anaplasmosis Pancytopenia Discharge Exam Constitutional: Very pleasant male, no acute distress. Respiratory: Lung sounds were generally clear bilaterally. Cardiovascular: Heart was RRR without significant murmur, gallops or rubs. Gastrointestinal: No palpable hepatic or splenomegaly. The abdomen was soft with normal bowel sounds. Musculoskeletal System: The musculoskeletal system seemed concordant with age. Tremor noted in bilat hands. Skin: The skin was negative for jaundice. Extremities: Negative for edema or erythema Discharge Data Allergies Allergy/AdvReac Type Severity Reaction Status Date / Time No Known Allergies Allergy Verified 05/13/22 07:57 Consultations 05/13/22 09:12 ED Decision to Admit Stat Ordered Studies 05/13/22 08:29 CT abd pelvis wo con Stat Hospital Course (1) Sepsis: - Severe sepsis manifested by fever, tachycardia, leukopenia with hypotension - Source is tick-borne illness with a positive anaplasma smear - Received IV fluid hydration. - Started Doxycycline during admission, will complete a 14 day course (3 days inpatient, 11 days as outpatient). (2) Anaplasmosis: - On Doxycycline as above (3) Pancytopenia: - Due to anaplasmosis - Pancytopenia was improving by day of discharge. - Repeat CBC on 05/20 following PCP appt. (4) Hyponatremia: - Hypovolemic hyponatremia - RESOLVED with IVF hydration (5) Hypokalemia: - Replaced/resolved (6) Acute kidney injury: - RESOLVED with IVF hydration (7) Transaminitis: - Likely secondary to anaplasmosis - LFTs have improved. (8) GERD (gastroesophageal reflux disease): - Received Protonix; provided prescription for 40 mg daily at discharge. Discharged to home today. Will follow up with PCP on 05/20 for routine appt. Continuing Doxycycline for 14 day course. Total Time Total Time Spent Total Time Spent (In Minutes): >30 minutes Discharge Plan Discharge Items Patient Disposition: Home - Self-Care Reason For Visit: FEVER, LOSS OF BLADDER CONTROL Discharge Diagnosis: Anaplasmosis Pancytopenia Condition on Discharge: Good Activity: Resume your previous activity Exercise/Sports: Gradually increase as tolerated Non-emergency contact: Primary Care Provider Call non-emergency contact if: you have any medication questions, your symptoms worsen and you have a fever Follow-up/Referrals: Yinka Gongora, [Primary Care Provider] - Diet: Regular Addtl Attending Provider Instructions: 1. Anaplasmosis - Please take Doxycycline 100 mg twice daily; you will need to complete a 14 day course. - Please follow up with primary care provider as scheduled on 05/20/22. Lab work will need to be completed to re-evaluate low blood counts. 2. GERD - Prescription for Protonix was sent to your pharmacy, please take 40 mg once daily. Pending Studies at Discharge: Yes Studies:: Babesia DNA via PCR Stand-Alone Forms: My [facility], Work/School Release Medications and DC Order Prescriptions: New pantoprazole 40 mg Tablet,Delayed Release (Dr/Ec) 40 mg PO QAM 30 Days Qty: 30 RF: 2 doxycycline hyclate 100 mg Capsule 100 mg PO BID 11 Days Qty: 22 RF: 0 Continued allopurinol 100 mg tablet 100 mg PO DAILY PRN (Reason: Gout flare up) Qty: 90 RF: 1 indomethacin 50 mg capsule 50 mg PO TID PRN (Reason: gout) Qty: 90 RF: 5 atorvastatin 20 mg tablet 20 mg PO HS RF: 0 Discontinued pantoprazole 20 mg tablet,delayed release (DR/EC) 20 mg PO HS RF: 0 Discharge Orders: Discharge Order (Routine); Ordered 05/16/22 Ordered By: Stacy Mercedes Admission Data Admit Date/Time: 05/13/22 10:21 Attending Provider: Rolf Small Admit Provider: Stiven Locke Primary Care Provider: Yinka Gongora Other Providers: Fernando Escobar Other Interventions: Discharge Summary Assessment (RN) Last Done: 05/16/22 11:07 Coding Level of Care Code Established Pt D/C DAY MANAGEMENT >30 MINS Patient Type Established Diagnoses Sepsis A41.9 Anaplasmosis A77.49 Pancytopenia D61.818 Hyponatremia E87.1 Hypokalemia E87.6 Acute kidney injury N17.9 Transaminitis R74.01 GERD (gastroesophageal reflux disease) K21.9
[2022-05-17 15:11] LABS: Babesia microti DNA Not Detected (Not Detected)
== END 2022-05-16 11:55 | disposition home or self-care (01) | DRG 872 ==
LOC: ED 06:58 → 2E 10:21 → SUATTDRO 10:21 → 2E 12:35 → 3W 05-15 13:21
DX: A41.9 Sepsis, unspecified organism; D61.818 Other pancytopenia; E87.1 Hypo-osmolality and hyponatremia; A77.49 Other ehrlichiosis; E78.5 Hyperlipidemia, unspecified; E87.6 Hypokalemia; R65.20 Severe sepsis without septic shock; N17.9 Acute kidney failure, unspecified; R74.01 Elevation of levels of liver transaminase levels; K21.9 Gastro-esophageal reflux disease without esophagitis; M10.9 Gout, unspecified